=== PATIENT | female | born 1975 | race Hispanic/Latino ===

== ENCOUNTER → 2024-11-07 | Outpatient (CLI) | payer BC ==
--- NOTE | 2024-11-07 14:26 | HMCIMG ---
Cervical spine radiographs, frontal, lateral and odontoid views, 3 films. CLINICAL INDICATION: Neck pain FINDINGS: Bony mineralization is satisfactory. Cervical lordosis is maintained. Prevertebral soft tissues are intact. Flexion and extension radiograph demonstrated no evidence of malalignment. There is no evidence of cervical spine compression fracture. No cervical subluxation is seen. There is osteoarthritic and disc disease seen at C5-C6 with ventral marginal spur. The remaining intervertebral disc intervals are preserved. No destructive bony lesions are visualized. The craniocervical junction and cervical thoracic transition are within normal limits. IMPRESSION: Unremarkable radiographs of the cervical spine. No evidence of cervical spinal fracture or subluxation. Osteoarthritic changes and disc disease at C5-C6.
== END | disposition home or self-care (01) ==
LOC: RAH 12:50
PROVIDERS: ATTEND Physical Medicine & Rehabilitation
DX: M47.812 Spondylosis without myelopathy or radiculopathy, cervical region (principal); M50.322 Other cervical disc degeneration at C5-C6 level
CPT/HCPCS: 72050